=== PATIENT | female | born 1945 | race Caucasian/White ===

== ENCOUNTER 2017-10-27 13:41 | Inpatient (IN) | payer OTHER ==
[~2017-10-27] VITALS: Ht 160 cm; Wt 78.3 kg
--- NOTE | ~2017-10-27 | HC ---
[facility] [place] [address] CONSULTATION Name: PARK BAXTER Room #: 205-P [facility] IN ..#: [id number] Admission: 10/27/17 Attend Phys: Diomedes Vega MD Discharge: Date of : 49 Report #: [id number] THIS REPORT FOR: //name// CC: Diomedes Hackett REASON FOR CONSULTATION: Chest pain and elevated troponin. HISTORY OF PRESENT ILLNESS: The patient is a 71-year-old woman who is a patient of Dr. Misa Barros. She has a history of hypertension, dyslipidemia and immunodeficiency syndrome. This past week, she was traveling back and forth to [place]. On her way to [place] last week while driving she developed jaw tightness. This radiated into the midportion of her chest. The pain waxed and waned throughout the week. She went for a walk. With recurrence of the pain has had to sit down to have the pain alleviate over the course of about 30 minutes. She thought about seeking attention in [place], although did not do so and drove back. She had recurrent pain in shinto today. She presented to the Emergency Department where she was given nitrates and heparin and her pain improved. Her EKG demonstrated nonspecific changes. Her troponin was elevated. She has a history of hypertension, dyslipidemia and a strong family history of premature coronary disease and hypertension. She is a former smoker and quit in 1984. PAST HISTORY: Medical records have been reviewed and include a history of left foot surgery, right knee replacement, tonsillectomy, immunodeficiency syndrome, dyslipidemia and hypertension. MEDICATIONS: Her medicines include Lexapro 10 mg daily, lisinopril 20 mg daily, carvedilol 3.125 mg twice daily, valacyclovir 1000 mg daily, omeprazole, immunoglobulin 20 mL monthly, pravastatin 40 mg daily, alprazolam and calcium. SOCIAL HISTORY: She is . She is a former smoker and quit in 1984. FAMILY HISTORY: Notable for father who had a myocardial infarction at the age of 37. He had bypass surgery in 1984. He in his 70s. A brother who has had multiple stents. REVIEW OF SYSTEMS: All systems negative except as that noted above. PHYSICAL EXAMINATION: GENERAL: A pleasant woman in no distress. VITAL SIGNS: Blood pressure is 145/74, heart rate of 83 and regular, she is afebrile, 5 feet 4 inches tall and 174 pounds. HEENT: There are neither xanthelasma, subcutaneous xanthomata, oral mucosal or digital cyanosis or kyphoscoliosis present. CHEST: Clear to auscultation and percussion. [address] [address] CONSULTATION Name: PARK BAXTER Room #: [address] [place] [address] [place] ..#: [id number] Admission: 10/27/17 Attend Phys: Diomedes Vega MD Discharge: Date of : 49 Report #: [id number] CARDIAC: Regular rate and rhythm with normal S1 and S2. ABDOMEN: Soft and nontender. EXTREMITIES: Without cyanosis, clubbing or edema. Radial pulses are 2+. NEUROLOGIC: She is alert with a nonfocal exam. LABORATORY DATA: Sodium 133, potassium 4.7 and creatinine 0.7. Troponin 1.05. Coagulation parameters are normal. White count 9.3, hemoglobin 13, hematocrit 40 and platelet count 246. Chest x-ray is normal. EKG: Sinus rhythm with early R-wave progression. IMPRESSION: 1. Non-Q-wave myocardial infarction. 2. Hypertension. 3. Dyslipidemia. 4. Common variable immune deficiency. RECOMMENDATIONS: 1. Beta blockade, nitrates, aspirin and anticoagulants. 2. Coronary angiography. The angiographic procedure was discussed in detail including its associated risks. After a thorough discussion of the procedure, its risks and alternatives and after answering her questions, she is agreeable to proceeding. The risks associated with a percutaneous intervention were also discussed. <ELECTRONICALLY SIGNED> By: Jerrod Snyder MD, [facility] 10/28/17 0416 1859 563 Jerrod Snyder MD, FACC /nt
--- NOTE | ~2017-10-27 | EKG ---
[place] [address] [facility] [place] [address] ELECTROCARDIOGRAM REPORT Name: PARK BAXTER Room #: 205- ADM IN M.R.#: [id number] Admission: 10/27/17 Attend Phys: Diomedes Vega MD Discharge: Date of : 49 Report #: [id number] THIS REPORT FOR: //name// [facility] Test Date: 2017-10-28 Test Time: 06:22:43 Pat Name: PARK BAXTER Department: Room: 205 Gender: F Jinrikisha Driver: KAREN : 1945 Requested By: Jerrod Snyder Order Number: [id number] MD: Jerrod Snyder Measurements Intervals [place] Rate: 67 P: -19 MN: 150 QRS: -1 QRSD: 90 T: 63 QT: 401 QTc: 424 Interpretive Statements Sinus rhythm Atrial premature complex Abnormal R-wave progression, early transition No previous ECGs available for comparison Electronically Signed On 10-28-2017 10:05:02 CDT by Jerrod Snyder [email or web address] <ELECTRONICALLY SIGNED> By: Jerrod Snyder MD, [facility] 10/28/17 1005 D: [id number] 1 Jerrod Snyder MD, FACC /EPI
--- NOTE | ~2017-10-27 | EKG ---
[address] [place] [address] ELECTROCARDIOGRAM REPORT Name: PARK BAXTER Room #: 205- ADM IN M.R.#: [id number] Admission: 10/27/17 Attend Phys: Diomedes Vega MD Discharge: Date of : 49 Report #: [id number] THIS REPORT FOR: //name// [facility] Test Date: 2017-10-28 Test Time: 01:40:41 Pat Name: PARK BAXTER Department: Room: 205 Gender: F Pipelaying Fitter: KAREN : 1945 Requested By: Jerrod Snyder Order Number: [id number] MD: Jerrod Snyder Measurements Intervals [place] Rate: 118 P: 36 SC: 179 QRS: 15 QRSD: 92 T: 31 QT: 357 QTc: 501 Interpretive Statements Sinus tachycardia Paired ventricular premature complexes, occasional premature supraventricular complexes Prolonged QT interval Compared to ECG 10/27/2017 13:59:08 Ventricular and atrial premature complex(es) now present Prolonged QT interval now present Electronically Signed On 10-29-2017 8:34:49 CDT by Jerrod Snyder [email or web address] <ELECTRONICALLY SIGNED> By: Jerrod Snyder MD, [facility] 10/29/17 0834 0140 0140 Jerrod Snyder MD, [facility] /EPI
--- NOTE | ~2017-10-27 | EKG ---
[address] [place] [address] ELECTROCARDIOGRAM REPORT Name: PARK BAXTER Sinan Room #: 205-P ADM IN M.R.#: [id number] Admission: 10/27/17 Attend Phys: Diomedes Vega MD Discharge: Date of : 49 Report #: [id number] THIS REPORT FOR: //name// [facility] ED Test Date: 2017-10-27 Test Time: 13:59:08 Pat Name: PARK BAXTER Department: Room: Gender: F Forcer Maker: Donnie VALLE : 1945 Requested By: Del Rico Order Number: [id number] MD: Kvng Guzman Measurements Intervals [place] Rate: 78 P: -10 MN: 139 QRS: -3 QRSD: 88 T: 9 QT: 349 QTc: 398 Interpretive Statements Sinus rhythm Abnormal R-wave progression, early transition Left ventricular hypertrophy Compared to ECG 10/29/2006 10:47:57 Left ventricular hypertrophy now present Sinus bradycardia no longer present Electronically Signed On 10-27-2017 21:20:12 CDT by Kvng Guzman [email or web address] <ELECTRONICALLY SIGNED> By: Kvng Guzman MD 10/27/17 2120 1359 1359 Kvng Guzman MD /EPI
--- NOTE | ~2017-10-27 | H ---
[facility] [place] [address] HISTORY AND PHYSICAL Name: PARK BAXTER Room #: 205-P [facility] IN ..#: [id number] Admission: 10/27/17 Attend Phys: Diomedes Vega MD Discharge: 10/29/17 Date of : 49 Report #: [id number] THIS REPORT FOR: //name// CC: Diomedes BarrosAimee DATE OF SERVICE: 10/27/2017 REASON FOR ADMISSION: Jaw pain. HISTORY OF PRESENT ILLNESS: This is a very pleasant 71-year-old with no known previous cardiac problems. She tells me that she was visiting her brother down in [place], [place]. She started to have some bilateral jaws pain that started on Saturday. This had been happening at exertion and at rest. It does get exacerbated by exertion. Along with that she had some exertional chest tightness. No nausea or vomiting. No left upper extremity pain. No syncopal episodes. No previous similar episodes. She has history of allergies and GERD in the past. Because of her symptoms, she tried Tums, allergy medications and some reflux medications without any improvement of her symptoms. No previous similar episodes. She does carry a very significant family history of coronary artery disease. She never had cardiac catheterization before. She never had any problems with heart failure. She tells me that she is chronically maintained on IVIG for immune deficiency. She also tells me that she has some sort of allergies and maintained on allergy medications for that. In terms of her immune deficiency, this was discovered 3 years ago. Her primary care physician kept treating her for sinusitis, shingles, poison dirk infections, then she was sent to [facility] where they discovered that she had immune deficiency. She is not really sure what kind of immune deficiency; however, it does seem to be common variable immune deficiency, for which she is receiving IVIG every 4 weeks. She is an ex-smoker who quit in 1984. PAST MEDICAL HISTORY: 1. Immunoglobulin deficiency. 2. Allergies. 3. Hypertension. 4. Status post hysterectomy. 5. Rectal fissure surgery. 6. Left foot surgery with plates. 7. Left knee replacement. 8. Tonsillectomy. 9. Hysterectomy. MEDICATIONS: 1. Lexapro. 2. Lisinopril. 3. Carvedilol. [facility] [address] [place] [address] HISTORY AND PHYSICAL Name: PARK BAXTER Sinan Room #: 205-P [facility] IN M.R.#: [id number] Admission: 10/27/17 Attend Phys: Diomedes Vega MD Discharge: 10/29/17 Date of : 49 Report #: [id number] 4. Valacyclovir. 5. Omeprazole. 6. IVIG. 7. Pravastatin. 8. Alprazolam. ALLERGIES: 1. ATROPINE. 2. MORPHINE. 3. 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 FAMILY HISTORY: Father's side has very significant coronary artery disease. SOCIAL HISTORY: She quit smoking in 1984. She used to work for [employer]. No drug or alcohol abuse. REVIEW OF SYSTEMS: GENERAL: Occasional weakness, but no fever or chills. CARDIOVASCULAR: As per the history of present illness. PULMONARY: No cough or hemoptysis, but significant shortness of breath. GASTROINTESTINAL: No nausea or vomiting. GENITOURINARY: No frequency, no urgency. MUSCULOSKELETAL: Occasional arthralgias. SKIN: No rash or ulcerations. PHYSICAL EXAMINATION: GENERAL: Alert, oriented, in no apparent distress. VITAL SIGNS: Temperature 36.8, blood pressure 148/87. HEAD AND NECK: No jugular venous distention, no bruit, no thyromegaly. CHEST: Clear to auscultation bilaterally. CARDIOVASCULAR: Regular with no rub detected. ABDOMEN: Soft, nontender with no hepatosplenomegaly. LOWER EXTREMITIES: No edema. NEUROLOGICAL: Intact power and sensation and reflexes. SKIN: No rash or ulcerations. LABORATORY DATA: Reviewed. CBC is essentially within normal. Chemistry showed mildly depressed sodium at 133. Glucose is 118. Troponin is 1.05. Chest x-ray reviewed and negative for any acute cardiac or pulmonary process. ASSESSMENT, IMPRESSION, PLAN: 1. Non-ST elevation myocardial infarction. 2. Hypertension. 3. Common variable immune deficiency disorder. [address] [address] HISTORY AND PHYSICAL Name: PARK BAXTER Room #: 205-P [facility] IN ..#: [id number] Admission: 10/27/17 Attend Phys: Diomedes Vega MD Discharge: 10/29/17 Date of : 49 Report #: [id number] 4. Seasonal allergies. 5. Hyperlipidemia. 6. History of gastroesophageal reflux. 7. Admission. 8. Cardiac consultation. 9. Serial troponin. 10. Cardiac echo. 11. IV heparin. 12. Nitroglycerin p.r.n. 13. Pain control. 14. Beta sandie, statin, aspirin, COLLIN inhibitor. 15. Pending further cardiac evaluation to decide whether to proceed with a cardiac catheterization or a stress test. 16. Resume all of her other outpatient medications for her sleep, anxiety. 17. GI prophylaxis. 18. Maintained on IV heparin for her myocardial event, which will cover her for her deep venous thrombosis prophylaxis. <ELECTRONICALLY SIGNED> By: Diomedes Vega MD 11/04/17 0945 1723 1808 Diomedes Vega MD /nt
--- NOTE | ~2017-10-27 | CATHLAB ---
[facility] [address] [place] [address] INVASIVE PROCEDURE REPORT Name: PARK BAXTER Room #: 205-P [facility] IN [facility]#: [id number] Admission: 10/27/17 Attend Phys: Diomedes Vega, Discharge: Date of : 49 Date of Service: 10/27/172108 Report #: [id number] THIS REPORT FOR: //name// APPROVED REPORT Study performed: 10/27/2017 19:11:54 Patient Details Patient Status: IN Room #: The patient is a 71 year-old female Event Personnel Jerrod Snyder Upper Leather Cutter, Loyda Herzog RN RN, Sonal Mejia RTR, Garcia Hayes David Monitor Procedures Performed Left Heart Cath w/or w/o Coronaries [id number] [facility] w/wo Plasty Single RCA [id number] Indication Chest pain Procedure Narrative The patient was brought urgently to the Cardiac Catheterization Laboratory and was prepped and draped in a sterile manner. The Right Groin^ was infiltrated with 1% Lidocaine subcutaneous anesthesia. A PINNACLE 6FR Sheath #[id number] sheath was inserted into the RFA^. Coronary angiography was performed using coronary diagnostic catheters. The right coronary system was accessed and visualized with a JR4 catheter. The left coronary system was accessed and visualized with a JL4 catheter. The left ventricle was accessed and visualized with a PIGTAIL catheter. Left ventricular/Aortic Valve gradient assessed via catheter pullback. Left ventriculogram was performed in 30 degree projection. The patient tolerated the procedure well and there were no complications associated with the procedure. There was no hematoma. Intraoperative Conscious Sedation Sedation start time: 19.37 Case end Time: 20.16 Fentanyl 100 mcg Versed 1 mg Fluoro Time: 6.24 minutes Dose: DAP 5883 cGycm2 711 mGy Contrast Type and Amount: Omnipaque 250 ml [facility] [place] [address] INVASIVE PROCEDURE REPORT Name: PARK BAXTER Room #: 205-P [facility] IN [facility]#: [id number] Admission: 10/27/17 Attend Phys: Diomedes Vega, Discharge: Date of : 49 Date of Service: 10/27/17 2109 Report #: [id number] Coronary Angiography The patient's coronary anatomy is left dominant. Diagnostic Cath Left Main Normal, short left main LAD Mild to moderate proximal to mid vessel calcific plaquing. 30-40% mid LAD stenosis at first diagonal branch Diagonal 1 Mild proximal plaquing Diagonal 2 40-50% proximal second diagonal branch stenosis Circumflex The circumflex was large but nondominant and comprised of a large bifurcating, single marginal branch OM1 40% proximal first marginal branch plaquing OM2 Fairly extensive [id number] collaterals to the distal right coronary Right Coronary The right coronary was large, dominant, and occluded in its midportion CLIFFORD 0 flow Left Ventriculography The left ventricle is normal in size with abnormal contractility. The left ventricular ejection fraction is estimated to be 45-50%. Left ventricular wall motion abnormalities are present. There is no mitral insufficiency. Hypokinesis involving the base of the inferior wall. Hemodynamics The aortic pressure is 203/96 mmHg with a mean of 108 mmHg. The left ventricular pressure is 201/8 mmHg with a mean of mmHg. The left ventricular end diastolic pressure is 31 mmHg. There was no gradient across the aortic valve upon pullback. Pullback from the left ventricle to the aorta revealed no gradient across the aortic valve. PCI Technique Lesion Anticoagulation was achieved with Heparin, Integrilin. Patient was preloaded with Brillinta. Percutaneous coronary intervention was performed on the mid RCA. The lesion stenosis prior to intervention was 100% with CLIFFORD 0 flow. A LAUNCHER 6FR JR 4 #[id number] Guide Catheter was used to engage the ostium. A Luge Wire .014 x 182CM #[id number] Interventional Guidewire was used to cross the lesion. BALLOON DILATION A Balloon catheter Euphora RX 2.5 x 12 #[id number] was inserted and inflated up to 12.00atm for 18seconds. Repeat angiography revealed the following post-dilatation results: moderate diffuse stenosis [address] [address] INVASIVE PROCEDURE REPORT Name: PARK BAXTER Sinan Room #: 205-P [facility] IN ..#: [id number] Admission: 10/27/17 Attend Phys: Diomedes Vega, Discharge: Date of : 49 Date of Service: 10/27/172108 Report #: [id number] throughout the mid right coronary. CLIFFORD-3 flow restored. Additional Inflation: 14.00atm for 30seconds. STENT DEPLOYMENT A drug-eluting stent RESOLUTE RX 3.5 X 26 #[id number] was inserted and inflated up to 12.00atm for 30seconds. Repeat angiography revealed the following post-stent deployment results: there appeared to be distal thrombus embolization to the posterior lateral and posterior descending branches. Distal thrombus embolization was disrupted with gentle wire manipulation in both the posterolateral and posterior descending branches POST STENT DEPLOYMENT BALLOON DILATION A Balloon catheter TREK NC RX 3.5 X 15 #[id number] was inserted and inflated up to 15.00atm for 30seconds. Additional Inflation: 16.00atm for 16seconds. Additional Inflation: 18.00atm for 30seconds. Final angiography reveals 0 % stenosis with CLIFFORD 3 flow. Conclusion 1. Mild left ventricular dysfunction with hypokinesis involving the base of the inferior wall. Ejection fraction 45-50%. No mitral insufficiency. Diastolic heart failure 2. Normal left main 3. Mild to moderate proximal to mid LAD plaquing (30-40%) 4. 40% proximal first marginal branch stenosis 5. Occluded mid right coronary successfully ballooned and stented with a 3.5 x 26mm Resolute stent. CLIFFORD III flow restored Recommendations Cardiac Rehabilitation Referral Aggressive Medical Therapy Medications Administered COLLIN Inhibitor (any) Beta Jil (any) Statin (any) Ticagrelor Cardiac Rehabilitation Referral <ELECTRONICALLY SIGNED> By: Jerrod Snyder MD, [facility] 10/27/172108 08 08 Jerrod Snyder MD, FAC /INF
[~2017-10-27 13:41] MED LIST: ALLEGRA180 MG OR; ALPRAZOLAM 0.50.5 M1 OR; CALCIUM 600 +1 EAC1 OR; CELEXA40 MG OR; IMITREX100 MG OR; LANSOPRAZOLE30 MG OR; MELATONIN5 M2 OR; PRAVACHOL40 MG OR; STRESSTABS1 EACH OR; VITAMIN B-625 MG OR; VITAMIN D250000 UNIT OR
[2017-10-27 13:56] VITALS: BP 176/97
[2017-10-27 14:59] LABS: ABSOLUTE NEUTROPHILS 6.4 thou/uL (1.4-8.2); BASOPHILS 0.7 % (0.0-2.0); EOSINOPHILS 1.1 % (0.0-3.0); HEMATOCRIT 40.4 % (37.0-47.0); HEMOGLOBIN 13.9 gm/dL (12.0-15.0); LYMPHOCYTES 20.5 % (24.0-44.0); MCH 28.7 pg (26.0-34.0); MCHC 34.3 g/dL (28.0-37.0); MCV 83.6 fL (80.0-100.0); MONOCYTES 8.5 % (1.0-8.0); PLATELET COUNT 246 thou/uL (150-400); POLYS 69.2 % (36.0-66.0); RBC 4.83 mil/uL (4.20-5.00); WBC 9.3 thou/uL (4.0-11.0)
[2017-10-27 15:15] LABS: CALCIUM 9.4 mg/dL (8.5-10.1); CREATININE 0.7 mg/dL (0.6-1.0)
[2017-10-27 15:20] LABS: POTASSIUM 4.7 mmol/L (3.5-5.1)
[2017-10-27 15:26] LABS: TROPONIN-I 1.05 ng/mL (<0.06)
[2017-10-27] MEDS ORDERED: LEXAPRO 10 MG T10 MG PO (16:04)
[2017-10-27] MEDS ORDERED: LISINOPRIL20 MG PO (16:04)
[2017-10-27] MEDS ORDERED: CARVEDILOL3.125 MG PO (16:05)
[2017-10-27] MEDS ORDERED: AMBIEN 5 MG TABL5 M1 PO (16:05)
[2017-10-27] MEDS ORDERED: VALACYCLOVIR1000 MG PO (16:06)
[2017-10-27] MEDS ORDERED: OMEPRAZOLE40 MG PO (16:07)
[2017-10-27] MEDS ORDERED: OCTAGAM 10% VIA20 ML IV (16:08)
[2017-10-27] MEDS ORDERED: CEFDINIR300 MG PO (16:09)
[2017-10-27 16:17] LABS: APTT 20.9 Seconds (24.5-32.8); PROTIME 9.7 Seconds (9.3-11.4)
[2017-10-27 16:54] VITALS: BP 148/87
[2017-10-27 18:45] VITALS: BP 145/74
[2017-10-27 19:09] LABS: CHOLESTEROL 195 mg/dL (<200); HDL CHOLESTEROL 50 mg/dL (>40); LDL CHOLESTEROL 94 mg/dL (<100); TC:HDL 3.9 Ratio (Not establshd); TRIGLYCERIDE 258 mg/dL (<150); VLDL 52 mg/dL (<40)
[2017-10-27 19:13] VITALS: BP 163/94
[2017-10-27 22:57] VITALS: BP 158/66
[2017-10-28 05:17] LABS: HEMATOCRIT 37.5 % (37.0-47.0); HEMOGLOBIN 12.5 gm/dL (12.0-15.0); MCHC 33.4 g/dL (28.0-37.0); MCV 83.8 fL (80.0-100.0); RBC 4.48 mil/uL (4.20-5.00); RDW 14.4 % (10.5-14.5); WBC 9.5 thou/uL (4.0-11.0)
[2017-10-28 05:31] VITALS: BP 154/76
[2017-10-28 05:39] LABS: ALBUMIN 3.2 g/dL (3.4-5.0); CREATININE 0.8 mg/dL (0.6-1.0); POTASSIUM 4.2 mmol/L (3.5-5.1); TOTAL BILIRUBIN 0.5 mg/dL (<0.1-1.0); TOTAL PROTEIN 7.2 g/dL (6.4-8.2)
[2017-10-28 05:45] LABS: CALCIUM 8.7 mg/dL (8.5-10.1)
[2017-10-28 07:30] VITALS: BP 173/79
[2017-10-28 07:55] VITALS: BP 173/79
[2017-10-28 11:39] VITALS: BP 151/84
[2017-10-28 15:47] VITALS: BP 124/59
[2017-10-28 20:48] VITALS: BP 129/50
[2017-10-29 01:08] LABS: GLYCOHEMOGLOBIN (HGB A1C) 5.7 % (4.8-5.6)
[2017-10-29 05:06] VITALS: BP 151/80
[2017-10-29 07:36] VITALS: BP 147/70
[2017-10-29] MEDS ORDERED: ATORVASTATIN CA40 MG PO (10:46)
[2017-10-29] MEDS ORDERED: BRILINTA90 MG PO (10:46)
[2017-10-29] MEDS ORDERED: COREG6.25 MG PO (10:47)
[2017-10-29] MEDS ORDERED: ADULT LOW DOSE81 MG PO (10:47)
[2017-10-29 11:04] VITALS: BP 147/70
== END 2017-10-29 11:57 | disposition home or self-care (01) | DRG 246 ==
LOC: ER 13:41 → 2N 15:51 → EROBS 15:51 → 2N 18:19
PROVIDERS: Emergency Medicine; Hospitalist; Internal Medicine
PROC: B2111ZZ Fluoroscopy of Multiple Coronary Arteries using Low Osmolar Contrast (ICD-10-PCS; principal; 2017-10-27)
PROC: 4A023N7 Measurement of Cardiac Sampling and Pressure, Left Heart, Percutaneous Approach (ICD-10-PCS; principal; 2017-10-27)
PROC: 027034Z Dilation of Coronary Artery, One Artery with Drug-eluting Intraluminal Device, Percutaneous Approach (ICD-10-PCS; principal; 2017-10-27)
PROC: B2151ZZ Fluoroscopy of Left Heart using Low Osmolar Contrast (ICD-10-PCS; principal; 2017-10-27)
DX: I21.4 Non-ST elevation (NSTEMI) myocardial infarction (principal); I50.33 Acute on chronic diastolic (congestive) heart failure; D83.9 Common variable immunodeficiency, unspecified; E78.5 Hyperlipidemia, unspecified; J30.2 Other seasonal allergic rhinitis; K21.9 Gastro-esophageal reflux disease without esophagitis; I25.5 Ischemic cardiomyopathy; I25.10 Atherosclerotic heart disease of native coronary artery without angina pectoris; M19.90 Unspecified osteoarthritis, unspecified site; Z96.652 Presence of left artificial knee joint; Z90.710 Acquired absence of both cervix and uterus; Z87.891 Personal history of nicotine dependence; Z79.899 Other long term (current) drug therapy; Z88.5 Allergy status to narcotic agent; Z88.8 Allergy status to other drugs, medicaments and biological substances; Z82.49 Family history of ischemic heart disease and other diseases of the circulatory system; I11.0 Hypertensive heart disease with heart failure
CPT/HCPCS: 10081

== ENCOUNTER → 2019-10-16 | Outpatient (CLI) | payer OTHER ==
[~2019-10-16] MED LIST changes: +ADULT LOW DOSE81 MG PO; +AMBIEN 5 MG TABL5 M1 PO; +ATORVASTATIN CA40 MG PO; +BRILINTA90 MG PO; +CARVEDILOL3.125 MG PO; +CEFDINIR300 MG PO; +COREG6.25 MG PO; +LEXAPRO 10 MG T10 MG PO; +LISINOPRIL20 MG PO; +OCTAGAM 10% VIA20 ML IV; +OMEPRAZOLE40 MG PO; +VALACYCLOVIR1000 MG PO
== END ==
LOC: SJCVC 14:10
PROVIDERS: ATTEND Internal Medicine
DX: I25.10 Atherosclerotic heart disease of native coronary artery without angina pectoris (principal); I10 Essential (primary) hypertension; E78.5 Hyperlipidemia, unspecified; I65.23 Occlusion and stenosis of bilateral carotid arteries; D83.9 Common variable immunodeficiency, unspecified; M79.651 Pain in right thigh; Z79.82 Long term (current) use of aspirin; Z79.899 Other long term (current) drug therapy; Z82.49 Family history of ischemic heart disease and other diseases of the circulatory system; Z87.891 Personal history of nicotine dependence

== ENCOUNTER → 2019-10-21 | Outpatient (CLI) | payer OTHER | LOC: SJCVCIMAG 08:53 | PROVIDERS: ATTEND Internal Medicine | DX: I65.23 Occlusion and stenosis of bilateral carotid arteries (principal); I73.9 Peripheral vascular disease, unspecified ==

== ENCOUNTER → 2020-05-19 | Outpatient (CLI) | payer OTHER | LOC: SJCVC 14:38 | PROVIDERS: ATTEND Internal Medicine | DX: I25.10 Atherosclerotic heart disease of native coronary artery without angina pectoris (principal); I10 Essential (primary) hypertension; E78.5 Hyperlipidemia, unspecified; I65.23 Occlusion and stenosis of bilateral carotid arteries; D83.9 Common variable immunodeficiency, unspecified; Z87.891 Personal history of nicotine dependence; Z72.89 Other problems related to lifestyle; Z79.82 Long term (current) use of aspirin; Z79.899 Other long term (current) drug therapy ==

== ENCOUNTER → 2020-09-07 | Outpatient (CLI) | payer OTHER | LOC: SJCVC 13:01 | PROVIDERS: ATTEND Internal Medicine | DX: I25.10 Atherosclerotic heart disease of native coronary artery without angina pectoris (principal); E78.5 Hyperlipidemia, unspecified; I65.23 Occlusion and stenosis of bilateral carotid arteries; D83.9 Common variable immunodeficiency, unspecified; I25.2 Old myocardial infarction; I11.0 Hypertensive heart disease with heart failure; I50.30 Unspecified diastolic (congestive) heart failure; Z98.890 Other specified postprocedural states; Z88.8 Allergy status to other drugs, medicaments and biological substances; Z79.82 Long term (current) use of aspirin; Z79.899 Other long term (current) drug therapy; Z87.891 Personal history of nicotine dependence; Z82.49 Family history of ischemic heart disease and other diseases of the circulatory system ==

== ENCOUNTER → 2021-05-25 | Outpatient (CLI) | payer OTHER | LOC: SJCVCIMAG 11:24 | PROVIDERS: ATTEND Internal Medicine | DX: I49.1 Atrial premature depolarization (principal); R00.0 Tachycardia, unspecified; I25.10 Atherosclerotic heart disease of native coronary artery without angina pectoris; I10 Essential (primary) hypertension; E78.5 Hyperlipidemia, unspecified; I65.23 Occlusion and stenosis of bilateral carotid arteries; D83.9 Common variable immunodeficiency, unspecified; Z95.2 Presence of prosthetic heart valve; Z87.891 Personal history of nicotine dependence; Z72.89 Other problems related to lifestyle; Z79.82 Long term (current) use of aspirin; Z79.899 Other long term (current) drug therapy; Z82.49 Family history of ischemic heart disease and other diseases of the circulatory system; Z88.8 Allergy status to other drugs, medicaments and biological substances ==